=== PATIENT | male | born 1995 | race Caucasian/White ===

== ENCOUNTER 2021-06-09 16:27 | Emergency (ER) | payer SELFPAY | END 2021-06-09 17:58 | disposition home or self-care (01) | LOC: CSHERS 16:27 | DX: H60.11 Cellulitis of right external ear (principal); F17.290 Nicotine dependence, other tobacco product, uncomplicated | CPT/HCPCS: 99283 ==

== ENCOUNTER 2021-06-11 23:57 | Emergency (ER) | payer SELFPAY | END 2021-06-12 00:35 | disposition home or self-care (01) | LOC: CSHERS 23:57 | DX: R11.2 Nausea with vomiting, unspecified (principal); F17.290 Nicotine dependence, other tobacco product, uncomplicated | CPT/HCPCS: 99283 ==